=== PATIENT | female | born 1965 | race Caucasian/White ===

== ENCOUNTER → 2021-07-02 10:53 | Outpatient (BNVA) | payer BC, SELFPAY | PROVIDERS: PCP Internal Medicine; Visit Provider Physician Assistant Surgical ==

== ENCOUNTER → 2021-11-10 10:50 | Outpatient (BNVA) | payer BC, SELFPAY | PROVIDERS: PCP Internal Medicine; Visit Provider Physician Assistant Surgical | DX: E66.9 Obesity, unspecified (principal) ==

== ENCOUNTER → 2021-12-12 08:13 | Outpatient (BNVA) | payer BC, SELFPAY | PROVIDERS: PCP Internal Medicine; Visit Provider Physician Assistant Surgical | DX: E66.9 Obesity, unspecified (principal) ==

== ENCOUNTER 2023-10-29 12:14 | Outpatient (AMB) | payer BC, SELFPAY ==
--- NOTE | 2023-10-29 12:10 | MHC.AMNUTRGE ---
Intake VS Expanded 10/29/23 13:45 Height 5 ft 3 in Weight 231 lb BMI 40.9 Intake Visit Reasons: (TV) PO LSG DOS 08/24/19 [employer] Required: No Allergies latex [LATEX] Allergy (Unknown, Verified 11/10/21 11:02) RASH Penicillins [PENICILLINS] Allergy (Unknown, Verified 11/10/21 11:02) ANAPHYLAXIS latex Allergy (Unknown, Uncoded 07/02/21 11:06) rash penicillin Allergy (Unknown, Uncoded 07/02/21 11:06) vomiting HPI Nutrition Presentation Details LSg DOS 08/24/19 Current weight 231# Has had inadequate follow up Appt scheduled today after pt had posted a comment on [employer] page expressing frustration with weight gain . I reached out to offer support and pt accepted this appt today but in the past has otherwise declined appts with anyone in the program Diet Assmnt Details reports some cravings at night especially. We talked through triggers and identified she isn't eating enough calories, protein or fiber. 6oz coffee with 1/2 muscle milk shake mid midmorning 1/2 muscle milk shake 3pm 6oz coffee with 1/2 muscle milk n dinner - chicken, vegetables - dislikes a lot of meats , prefer to discuss vegetarian proteins. Hydration: not enough Taking care of her father who needs round the clock care , neglecting herslef had operation to fix ingrown toes on both feet. Wasn;'t able to exercise for a few weeks. Exercise: 30 minutes on the stationary bike , enjoys. was looking at calories and became discouraged. discussed ignoring calories Diagnosis Nutrition problem #1 overweight/obesity As related to (etiology) #1 excess energy intake and physical inactivity As evidenced by (sign/symptom) #1 high BMI Monitoring/Goals Nutrition problem monitoring total energy intake, level of knowledge/skill, total PRO intake, total CHO intake and weight Learning/Education Educational materials provided Yes Most Recent Diabetes Results: Hemoglobin A1c 6.6 % 08/11/19 Cholesterol 131 MG/DL 08/11/19 HDL Cholesterol 38 MG/DL 08/11/19 Triglycerides 115 MG/DL 08/11/19 Creatinine 0.75 MG/DL (0.5-1.4) 08/25/19 Blood Urea Nitrogen 8 MG/DL (9-16) L 08/25/19 Sodium 140 MMOL/L (135-145) 08/25/19 Potassium 4.1 MMOL/L (3.3-5.1) 08/25/19 Chloride 104 MMOL/L (96-108) 08/25/19 Calcium 9.7 MG/DL (8.4-10.2) 08/11/19 AST 17 U/L (5-31) 08/11/19 ALT 28 U/L (0-31) 08/11/19 Total Protein 7.2 G/DL (6.5-8.0) 08/11/19 Albumin 4.7 G/DL (3.5-5.0) 08/11/19 [facility] Medical History Breast cancer, right Surgical History History of bladder surgery History of esophagogastroduodenoscopy (EGD) History of hysteroscopy Hx of colonoscopy Hx of tonsillectomy S/P cystoscopy S/P laparoscopic sleeve gastrectomy S/P shoulder surgery Family History Father Arthritis HTN (hypertension) DM (diabetes mellitus) Mother Arthritis Age related osteoporosis Brother No problems noted. Brother No problems noted. Brother No problems noted. Son No problems noted. Daughter No problems noted. Daughter No problems noted. Social History (Updated 11/10/21 @ 11:06 by Bee Sun, [facility]) Alcohol intake: never Patient Tobacco Use Status: Former Tobacco user Tobacco use type: Cigarette Cigarettes Per Day: 10 Assessment & Plan Assessment & Plan (1) Morbid (severe) obesity due to excess calories: Code(s): E66.01 - Morbid (severe) obesity due to excess calories Plan discussed coping strategies for emotional eating, reinforced actiivity and daily movement. Encouraged increasing protein, calories and fiber and provided lots of food products to achieve these goals. Example plan provided of 1 protein shake in the AM, lunch balanced in protein, fat, carbs; snack protein and carb, dinner same as lunch. provided vegetarian food options. Increase hydration. Pt receptive to appt in 3 weeks Telehealth Telehealth Location of provider rendering services: practice address Location of patient: address on file Patient Identification confirmed using: Name, : Yes Telehealth method: voice only Patient verbally consented to treatment: Yes Patient verbally consented to billing insurance company: Yes Patient informed of any privacy concerns related to visit: Yes Minutes spent on Phone/Video with Pt.: 45 Coding Level of Care Code Nutr Indiv Subseq ([id number]) Diagnoses Morbid (severe) obesity due to excess calories E66.01 Time Spent (min) 45
[2023-10-29 13:45] VITALS: BMI 40.9
== END 2023-10-29 13:01 | disposition home or self-care (01) ==
LOC: HO.HBS 12:15
PROVIDERS: PCP Internal Medicine; Visit Provider Dietitian, Registered
DX: E66.01 Morbid (severe) obesity due to excess calories (principal)

== ENCOUNTER → 2023-10-29 12:14 | Outpatient (BNVA) | payer BC, SELFPAY | PROVIDERS: PCP Internal Medicine; Visit Provider Dietitian, Registered | DX: E66.01 Morbid (severe) obesity due to excess calories (principal); Z68.41 Body mass index [BMI] 40.0-44.9, adult; Z98.84 Bariatric surgery status; Z71.3 Dietary counseling and surveillance | CPT/HCPCS: 97803 ==